=== PATIENT | female | born 1990 | race African-American/Black ===

== ENCOUNTER 2023-05-28 07:27 | Emergency (ER) | payer OTHER, SELFPAY ==
[2023-05-28 07:40] VITALS: BP 114/68
--- NOTE | 2023-05-28 08:05 | ED.GENMED ---
History of Present Illness
General
Chief Complaint: Vaginal Bleeding
Source: patient
Exam Limitations: none
Time Seen by Provider: 05/28/23 07:45
Nursing documentation reviewed up to this point in time: agreed with
Travel History
Have you had any contact with someone who has COVID-19?: No
Do you have any symptoms of coronavirus? Fever > 100 degrees, chills, cough, shortness of breath, sore throat, loss of taste or smell, muscle aches, or headache?: No
History of Present Illness
History of Present Illness:
32-year-old female with no significant past medical history who says that she started noticing some vaginal changes including itchiness a week ago which was treated with Diflucan when she called her doctor, they called in for her without seeing her.
Patient says the itchiness got better but her discharge changed to a cloudy thin foul-smelling discharge. She says that she has had 1 sexual partner for 7 years. After noticing these changes she asked him and he reported that he slept with
someone else without protection. Patient is here requesting STD testing. She is not having pelvic pain or dysuria, urinary frequency or urgency, fevers or chills. She has not Mirena IUD which was placed last month. She has had some spotting off
and on with that, nothing out of the ordinary. Despite her triage check and being vaginal bleeding patient is not having any vaginal bleeding. She has not changed her soap and has never had BV before.
Past History
Past History
ED Past Medical History: None
ED Past Surgical History: None
Social History
Tobacco: Non-smoker
Alcohol: None
Drug: None
Personal: Partner
Living: with family
Review of Systems
Review of Systems
Allergies reviewed?: Yes
All Other Systems: Not applicable
Phy Exam
Physical Exam
Physical Exam:
GENERAL: Alert , in no apparent distress
EYE: pupils equal and reactive
NECK: Supple
ENT: o/p clr, mmm.
CARDIAC: Regular rate and rhythm .
LUNGS: Clear breath sounds bilaterally, no acute respiratory distress, no wheezes/rales/rhonchi
ABDOMEN: Soft, without focal tenderness, no r/g, no cvat, normal bowel sounds
: normal external inspection
thin watery cloudy discharge in vagina
no erythema
no cmt
no adnexal tenderness;
IUD strings felt on exam
NEUROLOGICAL: Alert and oriented, no focal neuro deficits
SKIN: Warm and dry, skin intact.
MUSCULOSKELETAL: No edema, well perfused. neg nieves's sign
PSYCH: Normal and appropriate interaction.
Course
Orders/Labs/Results
Orders:
Orders
05/28/23 07:53
Test Result ONCE
05/28/23 07:59
HCG, Urine Qualitative Screen Urgent
Date Specimen was Collected: 05/28/23
Time Specimen was Collected: 07:57
Chlamydia/GC by PCR Urgent
ARABELLA Source: Vagina
Specimen Description:
Source:: ENDOCERVICAL
Date Specimen was Collected: 05/28/23
Time Specimen was Collected: 07:57
Trichomonas - Wet Prep Urgent
ARABELLA Source: Vagina
Specimen Description:
Date Specimen was Collected: 05/28/23
Time Specimen was Collected: 07:57
Vital Signs
Initial and Last Documented VS:
Initial Vital Signs
Temp Pulse Resp Pulse Ox
98.1 F 63 16 99
05/28/23 07:38 05/28/23 07:38 05/28/23 07:38 05/28/23 07:38
Last Documented Vital Signs
Temp Pulse Resp BP Pulse Ox
98.1 F 63 16 114/68 99
05/28/23 07:38 05/28/23 07:38 05/28/23 07:38 05/28/23 07:40 05/28/23 07:38
MDM/Problems Addressed
Differential Diagnosis Includes:
VAGINITIS, STD
MDM/Problems Addressed:
32-year-old female with no significant past medical history here with several days of foul-smelling watery vaginal discharge. She is has 1 sexual partner who admitted to her that he has had unprotected sex recently. Patient says she had an IUD
placed last month and had STD testing during that time which was all negative. She is not having any dysuria or pelvic pain. On exam she has no significant signs of cervicitis or even vaginitis. There is a thin watery cloudy discharge which is
consistent with BV. Her wet prep was negative for trichomonas.
GC and CT culture is pending.
Patient was offered STD treatment and she declined, will wait for cultures. [facility] called into the pharmacy. Return precautions, follow-up with [facility]
*Critical Care Note
Total Time (30-74mins, 75-104mins- exclusive of procedures): Not Applicable
ED Attending Note
-
Portions of this chart may have been created with voice recognition software.� Occasional wrong word or��sound alike� substitutions may have occurred due to the inherent limitations of voice recognition software.
Discharge Plan
Departure
Patient Disposition: Home (Routine Discharge)
Date of Disposition: 05/28/23
Time of Disposition: 08:37
Patient with high blood pressure during this ER visit?: No
Condition: Fair
Covid-19: Not Applicable
Discharge Problem:
Bacterial vaginosis
Instructions: Bacterial Vaginosis (DC)
Prescriptions:
New
metronidazole 0.75 % (37.5mg/5 gram) gel
1 appful vaginal HS 5 Days Qty: 70 0RF
Referrals:
Anna Shane, [Family Provider] - Follow up in 1 week
Activity Restrictions/Additional Instructions:
YOUR TEST FOR TRICHOMONAS WAS NEGATIVE
YOU LIKELY HAVE BACTERIAL VAGINOSIS
USE THE CREAM AT NIGHT ONCE A NIGH FOR 5 NIGHTS.
AVOID SCENTED SOAPS AND TAKING BATHS
AVOID INTERCOURSE UNTIL YOUR SYPMTOMS CLEAR UP AND YOUR RESULTS FROM YOUR STD TESTING ARE BACK
WE WILL CALL YOU IF YOU HAVE A NEED FOR FURTHER TREATMENT
RETURN FOR: SEVERE PAIN, FEVER, VOMITING, URINARY SYMPTOMS OR ANYC OCNERNS.
Interventions
Interventions:
*General Assessment Last Done: 05/28/23 08:41
*Neglect/Abuse Screening Last Done: 05/28/23 08:41
*ED COVID-19 Vaccine History Last Done: 05/28/23 07:38
ED-Female Genitourinary Assessment Last Done: 05/28/23 08:41
[2023-05-28 09:12] LABS: HCG, Urine Qualitative Screen Negative
[2023-05-28 09:27] VITALS: BP 112/67
== END 2023-05-28 09:28 | disposition home or self-care (01) ==
LOC: EMR 07:27
PROVIDERS: Physician Assistant; EMERGENCY PHYSICIAN Emergency Medicine; FAMILY PHYSICIAN Family Medicine
DX: N76.0 Acute vaginitis (principal); B96.89 Other specified bacterial agents as the cause of diseases classified elsewhere; Z97.5 Presence of (intrauterine) contraceptive device; Z88.8 Allergy status to other drugs, medicaments and biological substances; Z91.041 Radiographic dye allergy status; Z91.013 Allergy to seafood
CPT/HCPCS: 99283; 81025; 87210; 87491; 87591